=== PATIENT | male | born 1985 | race Asian ===

== ENCOUNTER 2024-01-26 15:46 | Emergency (ER) | payer OTHER ==
[~2024-01-26] VITALS: Ht 170.2 cm; Wt 116.0 kg
[2024-01-26 16:11] VITALS: TEMP 97.5; O2SAT 98
[2024-01-26] MEDS ORDERED: ONDANSETRON 4MG ODT PO ONE (17:30)
[2024-01-26] MEDS: KETOROLAC 30MG/ML VIAL IM ONE (17:40)
[2024-01-26] MEDS: DIPHENHYDRAMINE 25MG CAPSULE PO ONE (17:41)
[2024-01-26] MEDS: METOCLOPRAMIDE 10MG/10 ML UDC PO ONE (17:41)
[2024-01-26 18:31] VITALS: BP 144/99; PULSE 77; RESP 14
[2024-01-26] MEDS ORDERED: NAPR-1176 MT (18:31)
== END 2024-01-26 18:36 | disposition home or self-care (01) ==
LOC: ER 15:46
DX: R51.9 Headache, unspecified (principal); I10 Essential (primary) hypertension; F41.9 Anxiety disorder, unspecified; F32.A Depression, unspecified
CPT/HCPCS: 96372; 99283; Q0163; J8597; J1885; Z7610